=== PATIENT | female | born 1970 | race Caucasian/White ===

== ENCOUNTER → 2017-04-18 | Outpatient (CLI) | payer BC ==
[~2017-04-18] MED LIST: ALBUAER19 INH; ASCO500T3 PO; BCTROWC TOP; BIOT1CAP3 PO; CHOL2000 PO; CHRO500T5 PO; DIAZ5TAB3 PO; DIME50TA49 PO; ESOM20CA PO; ESTR1TAB2 PO; FEXO1TAB46 PO; INSDGIPEN SC; LEVO125T5 PO; LOSA100T65 PO; MISCCAP80 PO; NAPR220T40 PO; NVLGI/PEN SC; NYSCR30 EXT; NYST100010 TOP; [UNRECOGNIZED DRUG - CODE] PO; [UNRECOGNIZED DRUG - OTHER] PO
[2017-04-19 06:05] LABS: HEMOGLOBIN A1C 6.7 % (4.5-5.6)
== END | disposition home or self-care (01) ==
LOC: C.LAB1850 14:39
PROVIDERS: ATTEND Internal Medicine Endocrinology, Diabetes & Metabolism
DX: E89.0 Postprocedural hypothyroidism (principal); E10.9 Type 1 diabetes mellitus without complications